=== PATIENT | female | born 1975 | race Caucasian/White ===

== ENCOUNTER 2017-10-21 09:39 | Day surgery (SDC) | payer BC ==
[~2017-10-21] VITALS: Ht 170.2 cm; Wt 72.6 kg
[~2017-10-21 09:39] MED LIST: BIO X PO; MULTIPLE VITAM1 EAC1 PO; TYLENOL EXTRA500 MG PO; VENTOLIN HFA18 GM IH
[2017-10-21 10:12] VITALS: BP 108/63
[2017-10-21] MEDS ORDERED: PERCOCET 5/31 TABLET PO (13:42)
[2017-10-21 15:30] VITALS: BP 117/66
[2017-10-21 16:30] VITALS: BP 110/64
[2017-10-21 18:30] VITALS: BP 112/57
== END 2017-10-21 18:55 | disposition home or self-care (01) ==
LOC: SDC 09:39
PROC: 0YU54JZ Supplement Right Inguinal Region with Synthetic Substitute, Percutaneous Endoscopic Approach (ICD-10-PCS; principal; 2017-10-21)
DX: K40.30 Unilateral inguinal hernia, with obstruction, without gangrene, not specified as recurrent (principal); X50.9XXA Other and unspecified overexertion or strenuous movements or postures, initial encounter; Q79.6 Ehlers-Danlos syndromes; F41.9 Anxiety disorder, unspecified; J45.909 Unspecified asthma, uncomplicated; Z88.0 Allergy status to penicillin
CPT/HCPCS: C1727; C1781; J0131; J0330; J1100; J1170; J1885; J2250; J2405; J2765; J3010